=== PATIENT | female | born 1985 | race Caucasian/White ===

== ENCOUNTER 2019-10-17 06:05 | Inpatient (IN) | payer BC ==
[2019-10-17] MEDS ORDERED: morphine SULFATE/PF 0.5 MG/ML (2cc Syringe - QUVA) ONE (07:48)
[2019-10-17] MEDS ORDERED: SUCCINYLCHOLINE CHLORIDE 200 MG/10 ML SYRINGE ONE (07:48)
[2019-10-17] MEDS ORDERED: PROPOFOL 20 ML ONE (07:48)
[2019-10-17 07:56] VITALS: BMI 24.2
[2019-10-17] MEDS ORDERED: ELECTROLYTE-148 SOLN 1,000 ML IV ONE (08:15)
[2019-10-17] MEDS ORDERED: ELECTROLYTE-148 SOLN 1,000 ML IV SCH (08:15)
[2019-10-17] MEDS ORDERED: CITRIC ACID/SODIUM CITRATE 30 ML UNIT-DOSE CUP PO ONE (08:15)
[2019-10-17] MEDS ORDERED: OXYTOCIN 20 UNITS in 0.9% NS 40 UNIT/2,000 ML INFUS.BAG IV ONE ×2 (08:19→08:49)
[2019-10-17] MEDS ORDERED: ePHEDrine SULFATE 50 MG/1 ML AMPULE ONE (08:36)
[2019-10-17] MEDS ORDERED: SENNOSIDES/DOCUSATE COMBO (SENNA PLUS) TABLET (UD) PO PRN (09:56)
[2019-10-17] MEDS ORDERED: METHYLERGONOVINE MALEATE 0.2 MG/1 ML AMP IM PRN (09:56)
[2019-10-17] MEDS ORDERED: oxyCODONE HCL 5 MG TABLET PO PRN ×2 (09:56)
[2019-10-17] MEDS ORDERED: IBUPROFEN 800 MG/8 ML IJ IVPB PRN (09:56)
[2019-10-17] MEDS ORDERED: OXYTOCIN 20 UNITS in 0.9% NS 20 UNIT/1,000 ML INFUS.BAG IV SCH (10:00)
--- NOTE | 2019-10-17 10:03 | HP ---
Past Medical History - Admission Chief Complaint: repeat lt c s History of Present Illness: none History Source: Patient Limitations to Obtaining History: No Limitations - Past Medical History FIELD CHECKER: No: Alzheimer's, CVA, Dementia, Migraine, Multiple Sclerosis, Peripheral Neuropathy, Parkinson's, Seizure, Syncope, TIA, Vertigo, Other Cardiovascular: No: AFIB, Aneurysm, Aortic Insufficiency, Aortic Stenosis, CAD, CHF, Deep Vein Thrombosis, HTN, Hyperlipdemia, TN, Mitral Insufficiency, Mitral Stenosis, Murmur, Pulmonary Hypertension, Other Pulmonary: No: Asthma, Bronchitis, Cancer, COPD, O2 Dependent, Pneumonia, Previously Intubated, Pulmonary Embolus, Pulmonary Fibrosis, Sleep Apnea, Other Gastrointestinal: No: Ascites, Cancer, Constipation, Crohn's Disease, Diverticulitis, Diverticulosis, Esophageal Varices, Gastritis, GERD, GI Bleed, Hemorrhoids, Hiatal Hernia, Inflamatory Bowel Disease, Irritable Bowel Disease, Pancreatitis, Peptic Ulcer Disease, Ulcerative Colitis, Other Hepatobiliary: No: Cirrhosis, Cholelithiasis, Cholecystitis, Choledocholithiasis , Hepatitis A, Hepatitis B, Hepatitis C, Other Renal/: No: Renal Failure, Renal Inusuff, BPH, Cancer, Hematuria, Hemodialysis , Neurogenic Bladder, Renal Calculi, UTI, Other Reproductive: No: Ectopic , Endometriosis, Fibroids, PID, Polycystic Ovary Syndrome, Postmenopausal, Other ...: 2 ...Para: 1 ...Term: 1 ...: 0 ...Spon : 0 ...Induced : 0 ...Multiple Gestation: 0 ... Weeks Gestation by Dates: 39 ...EDC by Sono: 10/23/19 Heme/Onc: No: Anemia, B12 Deficiency, Bleeding Disorder, Cancer, Current Chemotherapy, Current Radiation Therapy, Hemochromatosis, Hypercoaguable State, Myeloproliferative Synd, Sickle Cell Disease, Sickle Cell Trait, Thrombocytopenia, Other Infectious Disease: No: AIDS, C-Diff, Herpes Zoster, HIV, MRSA, STD's, Tuberculosis, VREF, Other Psych: No: Addictions, Anxiety, Bipolar, Depression, Panic, Psychosis, Schizophrenia, Other Musculoskeletal: No: Bursitis, Chronic low back pain, Hemiparesis, Hemiplegia, Osteoarthritis, Paraplegia, Other Rheumatology: No: Fibromyalgia, Gout, Lupus, Rheumatoid Arthritis, Sarcoidosis, Vasculitis, Other ENT: No: Allergic Rhinitis, Sinusitis, Other Endocrine: No: Lincoln's Disease, Conway's Disease, Diabetes Insipidus, Diabetes Mellitus, Hyperparathyroidism, Hyperthyroidism, Hypothyroidism, Osteopenia, SIADH, Other Dermatology: No: Basal Cell, Cellulitis, Eczema, Melanoma, Psoriasis, Squamous Cell, Other - Past Surgical History Past Surgical History: Yes: Hx Myomectomy: No Hx Transabdominal Cerclage: No - Advance Directives Advance Directives: Yes: Living Will - Smoking History Smoking history: Never smoked Have you smoked in the past 12 months: No - Alcohol/Substance Use Hx Alcohol Use: No History of Substance Use: reports: None - Social History Usual Living Arrangement: Yes: With Spouse Do you think of yourself as: Straight/Heterosexual ADL: Independent History of Recent Travel: No Home Medications - Allergies Allergies/Adverse Reactions: Allergies Allergy/AdvReac Type Severity Reaction Status Date / Time No Known Allergies Allergy Verified 10/17/19 07:28 - Home Medications Home Medications: Ambulatory Orders Vits96/Iron Fum/Folic [ Tablet] 1 each PO DAILY 10/17/19 Family Medical History Family History: Denies Review of Systems - Review of Systems Constitutional: denies: No Symptoms, Chills, Diaphoresis, Fever, Lethargy, Loss of Appetite, Malaise, Night Sweats, Unintentional Wgt. Loss, Weakness, Other Eyes: denies: No Symptoms, Blind Spots, Blurred Vision, Double Vision, Eye Pain , Floaters, Photophobia, Recent Change in Vision, Other HENT: denies: No Symptoms, Difficult Swallowing, Ear Discharge, Ear Pain, Epistaxis, Gingival Bleeding, Hearing Loss, Mouth Swelling, Nasal Congestion, Ocular Prosthesis, Throat Pain, Toothache, Ringing in Ears, Other Neck: denies: No Symptoms, Decreased ROM, Lumps, Pain on Movement, Stiffness, Swollen Glands, Tenderness, Other Cardiovascular: denies: No Symptoms, Chest Pain, Edema, Palpitations, Shortness of Breath, Other Respiratory: denies: No Symptoms, Cough, Exercise Intolerance, Hemoptysis, Orthopnea, PND, Snoring, SOB, SOB on Exertion, Wheezing, Other Gastrointestinal: denies: No Symptoms, Abdominal Pain, Bloating, Constipation, Diarrhea, Dysphagia, Indigestion, Melena, Nausea, Rectal Bleeding, Vomiting, Vomiting Blood, Other Genitourinary: denies: No Symptoms, Burning, Discharge, Dysuria, Flank Pain, Frequency, Hematuria, Incontinence, Lesions, Menses, Pain, Testicular Mass, Testicular Pain, Testicular Swelling, Urgency, Vaginal Bleeding, Other Breasts: denies: No Symptoms Reported, See HPI, Breast Implants, Discharge from Nipple, Lumps, Pain, Skin Changes, Other Musculoskeletal: denies: No Symptoms, Back Pain, Crepitus, Decreased ROM, Extremity Pain, Joint Pain, Joint Swelling, Muscle Pain, Muscle Cramps, Muscle Weakness, Other Integumentary: denies: No Symptoms, Blister, Bruising, Change in Color, Eczema, Erythema, Incision, Lesions, Lump, Pallor, Pruritis, Rash, Wound, Other Neurological: denies: No Symptoms, Change in LOC, Change in Speech, Confusion, Dizziness, Headache, Incoordination, Numbness, Parasthesia, Pre-Existing Deficit , Seizure, Syncope, Tremors, Unsteady Gait, Weakness, Other Endocrine: denies: No Symptoms, Excessive Sweating, Flushing, Increased Hunger, Increased Thirst, Intolerance to Cold, Intolerance to Heat, Unexplained Weight Gain, Unexplained Weight Loss, Other Hematology/Lymphatic: denies: No Symptoms, Easily Bruised, Excessive Bleeding, Swollen Glands, Other Psychiatric: denies: No Symptoms, Altered Sleep Pattern, Anxiety, Depression, Hallucinations, Panic, Paranoia, Suicidal, Other Physical Exam - Maternity Vital Signs: Vital Signs Temperature 98.2 F 10/17/19 07:15 Pulse Rate 74 10/17/19 07:30 Respiratory Rate 18 10/17/19 07:30 Blood Pressure 142/88 10/17/19 07:30 O2 Sat by Pulse Oximetry (%) Constitutional: Yes: Well Nourished, No Distress, Calm Eyes: Yes: WNL, Conjunctiva Clear, EOM Intact HENT: Yes: WNL, Atraumatic, Normocephalic Neck: Yes: WNL, Supple, Trachea Midline Cardiovascular: Yes: WNL, Regular Rate and Rhythm Lungs: Clear to auscultation Breast(s): Yes: WNL - Abdominal Exam/OB Fundal Height: 38 Number of Fetuses: Single Presentation: Vertex Contractions: Yes Regularity: Irregular Intensity: Mild Monitor Mode: External Heart Rate (range): 135 Category: I Accelerations: Uniform Decelerations: None - Vaginal Exam/OB Vaginal Bleediing: No Speculum Exam: No Amniotic Membrane Status: Intact Presentation: Vertex/Position Station: -2 - Physical Exam Musculoskeletal: Yes: WNL Extremities: Yes: WNL Edema: No Edema: LUE: 1+, RUE: 1+, LLE: 1+, RLE: 1+ Integumentary: Yes: WNL Deep Tendon Reflex Grade: Normal +2 ...Motor Strength: WNL Psychiatric: Yes: WNL, Alert, Oriented Hemorrhage Risk Assessment - Risk Factors Medium Risk Factors: Yes: Prior , uterine surgery,or multiple laparotomies Risk Score: 1 Risk Level: Medium Risk Assessment/Plan for repeat lt c s
--- NOTE | 2019-10-17 10:05 | OP ---
Operative Note - Note: Operative Date: 10/17/19 Pre-Operative Diagnosis: repeat lt c s Operation: repeat lt c s Findings: no adhesion Post-Operative Diagnosis: Same as Pre-op Surgeon: Nadeem Zapata Tire Changer: Mehdi Yancey Anesthesiologist/HEALTH EVALUATOR: Elly Garvey MD Anesthesia: Spinal Estimated Blood Loss (mls): 600 (no complications ) Operative Report Dictated: Yes
[2019-10-17] MEDS ORDERED: morphine SULFATE/PF 0.5 MG/ML (2cc Syringe - QUVA) EP ONE (10:13)
[2019-10-17] MEDS ORDERED: ONDANSETRON 4 MG/2 ML VIAL IVPUSH PRN (10:13)
--- NOTE | 2019-10-17 11:55 | OP ---
DATE OF OPERATION: 10/17/2019 PREOPERATIVE DIAGNOSIS: Repeat low transverse section. POSTOPERATIVE DIAGNOSIS: Repeat low transverse section. PROCEDURE: Repeat low transverse section. SURGEON: Nadeem Zapata MD CUSTOMER SUPPORT ENGINEER: MAURO Holt ANESTHESIOLOGIST: Elly Garvey MD ANESTHESIA: Spinal anesthesia. INDICATIONS: This is a 34-year-old female patient 39 weeks who is taken to OR for repeat low transverse section. All of the risks, benefits, and alternatives explained to the patient. DESCRIPTION OF PROCEDURE: Patient was taken to the OR. Placed on the operating room table in supine position. After the spinal anesthesia was obtained, the patient's abdomen and pelvis were prepped and draped in the usual sterile manner. Pfannenstiel incision was made. Incision was made through the skin and subcutaneous tissue until the fascia was nicked in the midline. The fascia was extended bilaterally. Intraperitoneal cavity was entered. Bladder flap was created. Low transverse segment uterus was entered. Baby was delivered from DEBRA position. Baby was handed over to agricultural science professor after umbilical cord doubly clamped and cut. Cord blood gas obtained. Placenta was removed. Uterus was closed in a single layer. Good hemostasis. Both gutters were cleaned. Both ovaries, fallopian tubes, uterus are within normal limits. No complications. Bladder flap was closed. Draining clear urine. Blood loss about 600 mL. Patient tolerated procedure well. Peritoneum was closed. Fascia was closed. Skin was closed. Transferred to recovery room in stable condition. MD RAMANA MCKENZIE/[id number]
[2019-10-18] MEDS: ACETAMINOPHEN 325 MG TABLET (FP) PO PRN ×3 (06:35→21:28)
--- NOTE | 2019-10-18 09:07 | PN ---
Progress Note (short form) - Note Progress Note: POD1 s/p csection with spinal and duramorph. Pt's pain is well controlled, no back pain, no BRUCE, able to ambulate. No anesthetic issues/complications
[2019-10-18 09:31] LABS: BASO % 0.6 % (0-2.0); EOS % 0.2 % (0-4.5); HEMATOCRIT 31.9 % (32.4-45.2); HEMOGLOBIN 11.2 GM/dL (10.7-15.3); LYMPH % 13.2 % (8-40); MCH 32.3 pg (25.7-33.7); MEAN CELL VOLUME 92.1 fl (80-96); MEAN PLT VOLUME 9.1 fl (7.5-11.1); MONO % 2.5 % (3.8-10.2); NEUT % 83.5 % (42.8-82.8); PLATELET COUNT 236 K/MM3 (134-434); RBC 3.47 M/mm3 (3.60-5.2); RDW 12.9 % (11.6-15.6); WHITE BLOOD COUNT 10.8 K/mm3 (4.0-10.0)
[2019-10-18] MEDS: ENOXAPARIN NA (PORCINE) 40 MG/0.4 ML DISP.SYRIN SQ SCH (09:42)
[2019-10-18] MEDS: IBUPROFEN 600 MG TABLET (FP) PO PRN ×3 (09:42→21:29)
[2019-10-18] MEDS ORDERED: BISACODYL 10 MG SUPP.RECT RC PRN (09:56)
[2019-10-18] MEDS: SIMETHICONE 80 MG TAB.CHEW (FP) PO PRN ×2 (17:04→21:28)
--- NOTE | 2019-10-18 19:09 | PN ---
Post Progress Note Post Day: 1 Type of Delivery: Repeat C/S Vital Signs: Vital Signs Temperature 98.2 F 10/18/19 08:42 Pulse Rate 60 10/18/19 08:42 Respiratory Rate 18 10/18/19 08:42 Blood Pressure 132/89 10/18/19 08:42 O2 Sat by Pulse Oximetry (%) 98 10/17/19 10:25 Breast Exam: Yes: Soft Uterus: Yes: Fundus Firm Incision: Yes: Dressing dry and intact, Sutures intact Abdomen/GI: Yes: Abdomen soft, Passing flatus, Tolerating PO Lochia: Yes: Serosa Lochia, amount: Small Extremities: Yes: Calves non-tender Perineum: Yes: Intact Activity: Ambulating - Labs Labs: CBC WBC 10.8 K/mm3 (4.0-10.0) H 10/18/19 09:12 RBC 3.47 M/mm3 (3.60-5.2) L 10/18/19 09:12 Hgb 11.2 GM/dL (10.7-15.3) 10/18/19 09:12 Hct 31.9 % (32.4-45.2) L 10/18/19 09:12 MCV 92.1 fl (80-96) 10/18/19 09:12 MCH 32.3 pg (25.7-33.7) 10/18/19 09:12 MCHC 35.0 g/dl (32.0-36.0) 10/18/19 09:12 RDW 12.9 % (11.6-15.6) 10/18/19 09:12 Plt Count 236 K/MM3 (134-434) 10/18/19 09:12 MPV 9.1 fl (7.5-11.1) 10/18/19 09:12 Absolute Neuts (auto) 9.0 K/mm3 (1.5-8.0) H 10/18/19 09:12 Neutrophils % 83.5 % (42.8-82.8) H 10/18/19 09:12 Lymphocytes % 13.2 % (8-40) D 10/18/19 09:12 Monocytes % 2.5 % (3.8-10.2) L 10/18/19 09:12 Eosinophils % 0.2 % (0-4.5) 10/18/19 09:12 Basophils % 0.6 % (0-2.0) 10/18/19 09:12 Nucleated RBC % 0 % (0-0) 10/18/19 09:12 Other Findings, Remarks: no complications
[2019-10-19] MEDS: IBUPROFEN 600 MG TABLET (FP) PO PRN ×3 (07:58→21:38)
[2019-10-19] MEDS: ACETAMINOPHEN 325 MG TABLET (FP) PO PRN ×3 (07:59→21:39)
[2019-10-19] MEDS: ENOXAPARIN NA (PORCINE) 40 MG/0.4 ML DISP.SYRIN SQ SCH (09:48)
[2019-10-19] MEDS ORDERED: DIPHTH,PERTUSS(ACELL),TET 0.5 ML DISP.SYRIN IM ONE (10:00)
--- NOTE | 2019-10-19 11:28 | PN ---
Post Progress Note Post Day: 3 Type of Delivery: Repeat C/S Vital Signs: Vital Signs Temperature 97.7 F 10/19/19 09:13 Pulse Rate 82 10/19/19 09:13 Respiratory Rate 20 10/19/19 09:13 Blood Pressure 152/82 10/19/19 09:13 O2 Sat by Pulse Oximetry (%) 98 10/17/19 10:25 Breast Exam: Yes: Soft Uterus: Yes: Fundus Firm, Fundus below umbilicus, Non-tender Incision: Yes: Dressing dry and intact, Sutures intact Abdomen/GI: Yes: Abdomen soft, Passing flatus, Tolerating PO Lochia: Yes: Serosa Lochia, amount: Small Extremities: Yes: Calves non-tender Perineum: Yes: Intact Activity: Ambulating - Labs Labs: CBC WBC 10.8 K/mm3 (4.0-10.0) H 10/18/19 09:12 RBC 3.47 M/mm3 (3.60-5.2) L 10/18/19 09:12 Hgb 11.2 GM/dL (10.7-15.3) 10/18/19 09:12 Hct 31.9 % (32.4-45.2) L 10/18/19 09:12 MCV 92.1 fl (80-96) 10/18/19 09:12 MCH 32.3 pg (25.7-33.7) 10/18/19 09:12 MCHC 35.0 g/dl (32.0-36.0) 10/18/19 09:12 RDW 12.9 % (11.6-15.6) 10/18/19 09:12 Plt Count 236 K/MM3 (134-434) 10/18/19 09:12 MPV 9.1 fl (7.5-11.1) 10/18/19 09:12 Absolute Neuts (auto) 9.0 K/mm3 (1.5-8.0) H 10/18/19 09:12 Neutrophils % 83.5 % (42.8-82.8) H 10/18/19 09:12 Lymphocytes % 13.2 % (8-40) D 10/18/19 09:12 Monocytes % 2.5 % (3.8-10.2) L 10/18/19 09:12 Eosinophils % 0.2 % (0-4.5) 10/18/19 09:12 Basophils % 0.6 % (0-2.0) 10/18/19 09:12 Nucleated RBC % 0 % (0-0) 10/18/19 09:12 Other Findings, Remarks: dc pt home tomorrow Assessment/Plan dc pt home tomorrow
--- NOTE | 2019-10-19 11:32 | DS ---
Physical Exam-CORE MAKER Vital Signs: Vital Signs Temperature 97.7 F 10/19/19 09:13 Pulse Rate 82 10/19/19 09:13 Respiratory Rate 20 10/19/19 09:13 Blood Pressure 152/82 10/19/19 09:13 O2 Sat by Pulse Oximetry (%) 98 10/17/19 10:25 Constitutional: Yes: Well Nourished, No Distress, Calm Eyes: Yes: WNL, Conjunctiva Clear, EOM Intact HENT: Yes: WNL, Atraumatic, Normocephalic Neck: Yes: WNL, Supple, Trachea Midline Cardiovascular: Yes: WNL, Regular Rate and Rhythm Respiratory: Yes: WNL, Regular, CTA Bilaterally Gastrointestinal: Yes: WNL, Normal Bowel Sounds, Soft ...Rectal Exam: Yes: WNL Renal/: Yes: WNL Pelvis: Yes: WNL External Genitalia: Yes: Normal Internal Exam Deferred: No Vaginal Exam: Yes: Normal Cervix: Yes: Normal Uterus: Yes: Normal Adnexa: Normal: Bilateral ....Post : Yes: Uterus firm, Uterus non-tender Breast(s): Yes: WNL Musculoskeletal: Yes: WNL Extremities: Yes: WNL Edema: Yes Edema: LUE: 1+, RUE: 1+, LLE: 1+, RLE: 1+ Integumentary: Yes: WNL Wound/Incision: Yes: Clean/Dry, Well Approximated Neurological: Yes: WNL, Alert, Oriented ...Motor Strength: WNL Psychiatric: Yes: WNL, Alert, Oriented Labs: CBC, BMP 10/18/19 09:12 Delivery - Delivery Section: Repeat Type of Anesthesia: Spinal Episiotomy/Laceration: None EBL (cc): 600 Delivery, Single - Stages of Labor Date of Delivery: 10/17/19 Time of Delivery: 08:51 Time Placenta Delivered: 08:52 Placenta: Yes: Spontaneous - Condition of Infant Production Packager/Patient Access Coordinator Present: Yes Name: Bobby Auguste Infant Gender: Male Weight: 2.835 kg Position: Right, OA Total Hours ROM (Hrs/Mins): 0/2 - 1 Minute Total Score: 9 5 Minutes Total Score: 9 - [place] Feeding Plan Initial Plan: Elected not to breastfeed exclusively throughout hospitalization Benefits of Exclusively reinforced: Yes Discharge Summary Problems reviewed: Yes Reason For Visit: ADMIT Procedures: Principal: repeat lt c s Other Procedures: none Hospital Course: uneventful Health Concerns: none Plan of Treatment: oob as much as possible Goals: return to work in 8 weeks Condition: Good - Instructions Diet, Activity, Other Instructions: regular, routine post c s instructions Disposition: HOME - Home Medications Comprehensive Discharge Medication List: Ambulatory Orders Vits96/Iron Fum/Folic [ Tablet] 1 each PO DAILY 10/17/19
[2019-10-19] MEDS: SIMETHICONE 80 MG TAB.CHEW (FP) PO PRN (21:38)
[2019-10-20 08:26] VITALS: BP 155/99; PULSE 61; TEMP 97.9
[2019-10-20 09:11] LABS: BASO % 0.5 % (0-2.0); EOS % 3.8 % (0-4.5); HEMATOCRIT 37.5 % (32.4-45.2); HEMOGLOBIN 12.9 GM/dL (10.7-15.3); LYMPH % 26.8 % (8-40); MCHC 34.5 g/dl (32.0-36.0); MEAN CELL VOLUME 92.6 fl (80-96); MEAN PLT VOLUME 9.3 fl (7.5-11.1); MONO % 4.9 % (3.8-10.2); PLATELET COUNT 316 K/MM3 (134-434); RBC 4.05 M/mm3 (3.60-5.2); RDW 12.9 % (11.6-15.6); WHITE BLOOD COUNT 10.6 K/mm3 (4.0-10.0)
[2019-10-20] MEDS: ENOXAPARIN NA (PORCINE) 40 MG/0.4 ML DISP.SYRIN SQ SCH (09:42)
[2019-10-20] MEDS: IBUPROFEN 600 MG TABLET (FP) PO PRN (09:47)
[2019-10-20] MEDS: ACETAMINOPHEN 325 MG TABLET (FP) PO PRN (09:47)
== END 2019-10-20 12:50 | disposition home or self-care (01) | DRG 788 ==
LOC: JLDR 06:05 → J3W 11:07
PROVIDERS: ADMIT Obstetrics & Gynecology; ATTEND Obstetrics & Gynecology
PROC: 10D00Z1 Extraction of Products of Conception, Low, Open Approach (ICD-10-PCS; principal; 2019-10-17)
DX: O34.219 Maternal care for unspecified type scar from previous cesarean delivery (principal); Z3A.39 39 weeks gestation of pregnancy; Z37.0 Single live birth
CPT/HCPCS: 36415; 85025; 90715

== ENCOUNTER 2021-05-23 11:45 | Inpatient (IN) | payer BC ==
[2021-05-23 13:37] LABS: RETICULOCYTES 1.93 % (0.5-1.5)
[2021-05-23 14:04] LABS: URIC ACID 5.1 mg/dL (2.6-7.2)
[2021-05-23] MEDS ORDERED: BETAMET ACET/BETAMET NA PH 30 MG/5 ML VIAL IM ONE (15:00)
[2021-05-23] MEDS ORDERED: AMPICILLIN - 2 GM in SODIUM CHLORIDE 100 ML IVPB ONE (15:10)
[2021-05-23] MEDS ORDERED: DEXTROSE 5%-LACTATED RINGERS 1,000 ML IV SCH (15:15)
[2021-05-23] MEDS ORDERED: BETAMET ACET/BETAMET NA PH 30 MG/5 ML VIAL ONE (15:43)
[2021-05-23 16:46] LABS: BASO % 0.4 % (0-2.0); EOS % 0.5 % (0-4.5); HEMATOCRIT 34.9 % (32.4-45.2); HEMOGLOBIN 11.9 GM/dL (10.7-15.3); LYMPH % 17.3 % (8-40); MCH 31.4 pg (25.7-33.7); MEAN CELL VOLUME 92.4 fl (80-96); MEAN PLT VOLUME 9.4 fl (7.5-11.1); NEUT % 77.8 % (42.8-82.8); PLATELET COUNT 268 10^3/uL (134-434); RBC 3.78 M/mm3 (3.60-5.2); RDW 12.8 % (11.6-15.6); WHITE BLOOD COUNT 11.5 K/mm3 (4.0-10.0)
[2021-05-23 16:52] LABS: INR 0.9 (0.83-1.09); PROTHROMBIN TIME (PATIENT) 10.9 SEC (9.7-13.0)
[2021-05-23 16:59] LABS: BLOOD UREA NITROGEN 8.1 mg/dL (7-18); CALCIUM 8.5 mg/dL (8.5-10.1)
[2021-05-23 17:03] LABS: CREATININE 0.7 mg/dL (0.55-1.3)
[2021-05-23 17:25] LABS: SYPHILIS W/ RPR CONF NON-REACTIVE (NONREACTIVE)
[2021-05-23 17:54] LABS: HIV INTERPRETATION NEGATIVE (NEGATIVE)
[2021-05-23 18:55] VITALS: BMI 24.5
[2021-05-23] MEDS ORDERED: AMPICILLIN SODIUM 1 GM VIAL ONE (20:18)
[2021-05-23] MEDS: AMPICILLIN - 1 GM in SODIUM CHLORIDE 100 ML IVPB SCH (20:24)
[2021-05-23] MEDS ORDERED: OXYTOCIN 20 UNITS in 0.9% NS 20 UNIT/1,000 ML INFUS.BAG IV ONE ×2 (20:34→20:54)
[2021-05-23] MEDS ORDERED: morphine SULFATE/PF 0.5 MG/ML (2cc Syringe - QUVA) ONE (20:35)
[2021-05-23] MEDS ORDERED: morphine SULFATE/PF 0.5 MG/ML (2cc Syringe - QUVA) EP ONE (22:12)
[2021-05-23] MEDS ORDERED: ONDANSETRON 4 MG/2 ML VIAL IVPUSH PRN (22:12)
[2021-05-23] MEDS ORDERED: IBUPROFEN 800 MG/8 ML IJ IVPB PRN (22:17)
[2021-05-23] MEDS ORDERED: oxyCODONE HCL 5 MG TABLET PO PRN (22:17)
[2021-05-23] MEDS ORDERED: IBUPROFEN 600 MG TABLET (FP) PO PRN (22:17)
[2021-05-23] MEDS ORDERED: METHYLERGONOVINE MALEATE 0.2 MG/1 ML AMP IM PRN (22:17)
[2021-05-23] MEDS ORDERED: ACETAMINOPHEN 325 MG TABLET (FP) PO PRN (22:17)
[2021-05-23] MEDS ORDERED: OXYTOCIN 20 UNITS in 0.9% NS 20 UNIT/1,000 ML INFUS.BAG IV SCH (22:30)
[2021-05-24] MEDS: LABETALOL HCL 200 MG TABLET (FP) PO SCH ×4 (01:49→22:14)
[2021-05-24] MEDS: AMPICILLIN - 1 GM in SODIUM CHLORIDE 100 ML IVPB SCH (01:50)
[2021-05-24] MEDS: PRENATAL VITAMINS W/ FOLIC ACID TABLET (FP) PO SCH (10:09)
[2021-05-24 11:32] LABS: BASO % 0.2 % (0-2.0); HEMATOCRIT 30.5 % (32.4-45.2); HEMOGLOBIN 10.4 GM/dL (10.7-15.3); LYMPH % 7.3 % (8-40); MCH 31.7 pg (25.7-33.7); MCHC 34.1 g/dl (32.0-36.0); MEAN PLT VOLUME 9.8 fl (7.5-11.1); MONO % 4.3 % (3.8-10.2); NEUT % 88.2 % (42.8-82.8); PLATELET COUNT 252 10^3/uL (134-434); RBC 3.28 M/mm3 (3.60-5.2); RDW 12.5 % (11.6-15.6); WHITE BLOOD COUNT 19.6 K/mm3 (4.0-10.0)
[2021-05-24] MEDS: IBUPROFEN 600 MG TABLET (FP) PO PRN (15:09)
[2021-05-24] MEDS: ACETAMINOPHEN 325 MG TABLET (FP) PO PRN (15:10)
[2021-05-24] MEDS ORDERED: BISACODYL 10 MG SUPP.RECT RC PRN (22:17)
[2021-05-25] MEDS: ACETAMINOPHEN 325 MG TABLET (FP) PO PRN ×3 (06:21→21:15)
[2021-05-25] MEDS: IBUPROFEN 600 MG TABLET (FP) PO PRN ×3 (06:22→15:28)
[2021-05-25] MEDS: SIMETHICONE 80 MG TAB.CHEW (FP) PO PRN ×2 (06:22→21:15)
[2021-05-25] MEDS: LABETALOL HCL 200 MG TABLET (FP) PO SCH ×3 (08:22→21:20)
[2021-05-25] MEDS: oxyCODONE HCL 5 MG TABLET PO PRN ×2 (08:23→21:15)
[2021-05-25] MEDS: PRENATAL VITAMINS W/ FOLIC ACID TABLET (FP) PO SCH (10:16)
[2021-05-25] MEDS: SENNOSIDES/DOCUSATE COMBO (SENNA PLUS) TABLET (UD) PO PRN (21:16)
[2021-05-26] MEDS: SIMETHICONE 80 MG TAB.CHEW (FP) PO PRN ×2 (09:59→16:55)
[2021-05-26] MEDS: LABETALOL HCL 200 MG TABLET (FP) PO SCH ×2 (09:59→21:00)
[2021-05-26] MEDS: PRENATAL VITAMINS W/ FOLIC ACID TABLET (FP) PO SCH (09:59)
[2021-05-26] MEDS: IBUPROFEN 600 MG TABLET (FP) PO PRN ×2 (10:00→16:54)
[2021-05-26] MEDS: ACETAMINOPHEN 325 MG TABLET (FP) PO PRN ×3 (10:00→21:06)
[2021-05-26] MEDS ORDERED: NIFEdipine E.R. 30 MG TABLET PO ONE (12:45)
[2021-05-26] MEDS: SENNOSIDES/DOCUSATE COMBO (SENNA PLUS) TABLET (UD) PO PRN (21:00)
[2021-05-26] MEDS: oxyCODONE HCL 5 MG TABLET PO PRN (21:01)
[2021-05-27] MEDS: ACETAMINOPHEN 325 MG TABLET (FP) PO PRN ×3 (06:35→21:14)
[2021-05-27] MEDS: SIMETHICONE 80 MG TAB.CHEW (FP) PO PRN ×2 (06:35→11:32)
[2021-05-27] MEDS: IBUPROFEN 600 MG TABLET (FP) PO PRN ×3 (06:37→21:16)
[2021-05-27] MEDS: NIFEdipine E.R. 30 MG TABLET PO SCH ×2 (08:40→11:31)
[2021-05-27] MEDS: LABETALOL HCL 200 MG TABLET (FP) PO SCH ×2 (09:54→21:14)
[2021-05-27] MEDS: PRENATAL VITAMINS W/ FOLIC ACID TABLET (FP) PO SCH (09:55)
[2021-05-28 06:07] VITALS: TEMP 98
[2021-05-28] MEDS ORDERED: NIFEdipine E.R. 30 MG TABLET PO SCH (08:00)
[2021-05-28] MEDS: ACETAMINOPHEN 325 MG TABLET (FP) PO PRN (08:41)
[2021-05-28] MEDS: IBUPROFEN 600 MG TABLET (FP) PO PRN (08:42)
[2021-05-28] MEDS: SIMETHICONE 80 MG TAB.CHEW (FP) PO PRN (08:42)
[2021-05-28] MEDS ORDERED: NIFEdipine E.R 60 MG TABLET PO SCH (08:45)
[2021-05-28 09:46] VITALS: PULSE 78
[2021-05-28] MEDS: PRENATAL VITAMINS W/ FOLIC ACID TABLET (FP) PO SCH (11:14)
[2021-05-28] MEDS: LABETALOL HCL 200 MG TABLET (FP) PO SCH (11:14)
[2021-05-28 11:15] VITALS: BP 121/68
== END 2021-05-28 14:15 | disposition home or self-care (01) | DRG 788 ==
LOC: JDEL 11:45 → JLDR 14:45 → J3W 23:44
PROVIDERS: ADMIT Obstetrics & Gynecology; ATTEND Obstetrics & Gynecology
PROC: 10D00Z1 Extraction of Products of Conception, Low, Open Approach (ICD-10-PCS; principal; 2021-05-23)
DX: O34.219 Maternal care for unspecified type scar from previous cesarean delivery (principal); O14.14 Severe pre-eclampsia complicating childbirth; Z3A.34 34 weeks gestation of pregnancy; Z37.0 Single live birth
CPT/HCPCS: 36415; 59025; 80048; 82570; 82977; 83010; 84156; 84450; 84460; 84550; 85025; 85032; 85045; 85610; 85730; 86780; 86850; 86900; 86901; 87389; 88307-TC; 96372; C9803; U0003; U0005